=== PATIENT | female | born 1950 | race African-American/Black ===

== ENCOUNTER 2016-02-19 18:23 | Emergency (ER) | payer OTHER ==
[~2016-02-19] VITALS: Ht 165.1 cm; Wt 53.1 kg
--- NOTE | ~2016-02-19 | EKG ---
[place] [address] [facility] [place] [address] ELECTROCARDIOGRAM REPORT Name: DENNISTRANG Room #: [facility]P [facility] [id number] Admission: 02/19/16 Attend Phys: Discharge: 02/19/16 Date of : 52 Report #: [id number] THIS REPORT FOR: //name// [facility] ED Test Date: 2016-02-19 Test Time: 18:26:05 Pat Name: TRANG COLLINS Department: Room: Gender: F Colorer: : 1950 Requested By: Berry Cook Order Number: [id number] MD: Zack Lezama Measurements Intervals [place] Rate: 92 P: 72 WV: 132 QRS: 51 QRSD: 79 T: 51 QT: 346 QTc: 429 Interpretive Statements Sinus rhythm No significant abnormality Compared to ECG 12/01/2015 10:58:33 No significant change was found Electronically Signed On 02-20-2016 8:32:56 [employer] by Zack Lezama [email or web address] <ELECTRONICALLY SIGNED> By: Zack Lezama MD, [facility] 02/20/16 0832 1826 25 Zack Lezama MD, FACC /EPI
[~2016-02-19 18:23] MED LIST: FOLIC ACID1 MG PO; HYDROCODONE-AP1 EAC6 PO; NORFLEX100 MG PO; ONDANSETRON HCL4 M2 PO; PHENERGAN 25 MG25 M1 PO; VICODIN 5-3001 EACH PO; VITAMIN D1000 UNI1 PO; XANAX1 MG PO
[2016-02-19 19:23] LABS: HEMATOCRIT 41.4 % (37.0-47.0); HEMOGLOBIN 13.8 gm/dL (12.0-15.0); MCH 30.3 pg (26.0-34.0); MCHC 33.4 % (28.0-37.0); MCV 90.5 fL (80.0-100.0); PLATELET COUNT 187 thou/uL (150-400); RBC 4.57 mil/uL (4.20-5.00); RDW 13.8 % (10.5-14.5); WBC 3.6 thou/uL (4.0-11.0)
[2016-02-19 19:25] LABS: MANUAL DIFF YES
[2016-02-19 19:32] LABS: ANION GAP 10 mmol/L (7-16); BUN 14 mg/dL (7-18); CALCIUM 9.2 mg/dL (8.5-10.1); CHLORIDE 108 mmol/L (98-107); CO2 26 mmol/L (21-32); CREATININE 0.9 mg/dL (0.6-1.3); GLUCOSE 110 mg/dL (70-99); SODIUM 144 mmol/L (136-145)
[2016-02-19 19:39] LABS: ALBUMIN 3.5 g/dL (3.4-5.0); ALKALINE PHOSPHATASE 159 U/L (46-116); MAGNESIUM 2.1 mg/dL (1.8-2.4); SGOT 22 U/L (15-37); SGPT 31 U/L (30-65); TOTAL BILIRUBIN 0.1 mg/dL (<0.1-1.0); TOTAL PROTEIN 7.4 g/dL (6.4-8.2); TROPONIN-I < 0.04 ng/mL (<0.04-0.07)
[2016-02-19 19:55] LABS: ABSOLUTE NEUTROPHILS 0.9 thou/uL (1.4-8.2); TOTAL CELL COUNT 100
[2016-02-19] MEDS ORDERED: PREDNISONE 10 M10 MG PO (20:03)
[2016-02-19] MEDS ORDERED: VITAMIN D1000 UNI1 PO (20:03)
[2016-02-19] MEDS ORDERED: VICODIN 5-3001 EACH PO (20:04)
[2016-02-19] MEDS ORDERED: XANAX 0.25 MG0.25 MG PO (20:04)
[2016-02-19] MEDS ORDERED: FOLIC ACID 1 MG1 MG GT (20:04)
[2016-02-19] MEDS ORDERED: PHENERGAN 25 MG25 M1 PO (20:04)
[2016-02-19 21:25] VITALS: BP 127/77
== END 2016-02-19 21:32 | disposition home or self-care (01) ==
LOC: ER 18:23
PROVIDERS: Emergency Medicine
DX: R07.89 Other chest pain (principal); G43.909 Migraine, unspecified, not intractable, without status migrainosus; M32.9 Systemic lupus erythematosus, unspecified; Z85.118 Personal history of other malignant neoplasm of bronchus and lung; Z90.89 Acquired absence of other organs; Z88.0 Allergy status to penicillin; Z88.6 Allergy status to analgesic agent; Z88.5 Allergy status to narcotic agent; Z91.040 Latex allergy status